=== PATIENT | male | born 1955 | race Caucasian/White ===

== ENCOUNTER 2019-10-05 19:40 | Emergency (ER) | payer BC ==
[~2019-10-05] VITALS: Ht 185.4 cm; Wt 178.7 kg
[2019-10-05] MEDS ORDERED: HYDROCODONE/APAP 10MG-325MG TAB ONE (19:59)
[2019-10-05] MEDS ORDERED: HYDROCODONE/APAP 10MG-325MG TAB PO ONE (20:00)
[2019-10-05] MEDS ORDERED: DEXAMETHASONE SOD PHOS 10 MG/1 ML VIAL IM ONE (20:00)
[2019-10-05] MEDS ORDERED: CLINDAMYCIN PHOS 900MG/ 50ML 50 ML IV SCH (20:30)
[2019-10-05] MEDS ORDERED: FLUORESCEIN SOD(OPTH) 1 MG STRP ONE (20:55)
[2019-10-05] MEDS ORDERED: TETRACAINE HCL 0.5% OPTH SOLN 4 ML BTL ONE (20:55)
[2019-10-05 21:13] LABS: BASOPHILS % 0.3 % (0.0-1.0); EOSINOPHILS # (AUTO) 0.1 (0.0-0.4); EOSINOPHILS % 0.9 % (0.0-6.0); HEMOGLOBIN 14.9 g/dL (14.0-18.0); LYMPHOCYTES # (AUTO) 1.4 (1.0-3.2); LYMPHOCYTES % 18.3 % (18.0-39.1); MEAN CORPUSCULAR HGB CONC 33.9 g/dL (31-35); MEAN CORPUSCULAR VOLUME 88.7 fL (81-99); MONOCYTES # (AUTO) 0.7 (0.2-0.8); MONOCYTES % 8.3 % (4.4-11.3); NEUTROPHILS # (AUTO) 5.7 (2.1-6.9); NEUTROPHILS % 71.9 % (38.7-80.0); PLATELET COUNT 245 x10e3/uL (140-360); RED BLOOD COUNT 4.96 x10e6/uL (4.3-5.7); RED CELL DISTRIBUTION WIDTH 13.4 % (11.7-14.4)
[2019-10-05] MEDS ORDERED: MORPHINE SULFATE INJ 4 MG/ML INJ 1ML IV STA (21:25)
[2019-10-05] MEDS ORDERED: ONDANSETRON HCL INJ 2MG/ML 2ML 2 MG/ML VIAL IV STA (21:25)
[2019-10-05 21:39] LABS: ALANINE AMINOTRANSFERASE 37 IU/L (0-55); ALBUMIN 4.4 g/dL (3.5-5.0); ALBUMIN/GLOBULIN RATIO 1.5 (0.8-2.0); ALKALINE PHOSPHATASE 48 IU/L (40-150); ANION GAP 15.6 mmol/L (8-16); BLOOD UREA NITROGEN 14 mg/dL (7-26); BUN/CREATININE RATIO 15 (6-25); CALCIUM 10.1 mg/dL (8.4-10.2); CARBON DIOXIDE 23 mmol/L (22-29); CHLORIDE 106 mmol/L (98-107); CREATININE, SERUM 0.95 mg/dL (0.72-1.25); EST GLOMERULAR FILTRATION RATE > 60 ML/MIN (60-); GLUCOSE 125 mg/dL (74-118); POTASSIUM 3.6 mmol/L (3.5-5.1); SODIUM 141 mmol/L (136-145)
[2019-10-05] MEDS ORDERED: TETRACAINE HCL 0.5% OPTH SOLN 4 ML BTL OP ONE (21:45)
[2019-10-05] MEDS ORDERED: FLUORESCEIN SOD(OPTH) 1 MG STRP OP ONE (21:45)
[2019-10-05] MEDS ORDERED: ACYCLOVIR SODIUM INJ 1,000 MG in SODIUM CHLORIDE 0.9% 250ML 250 ML IV SCH (22:00)
[2019-10-05] MEDS ORDERED: TRIFLURIDINE(OPTH) 1 % 7.5ML BOTTLE OP SCH (22:00)
[2019-10-05] MEDS ORDERED: ACYCLOVIR 200 MG CAP PO STA (22:26)
[2019-10-05] MEDS ORDERED: ACYCLOVIR 200 MG CAP ONE (23:00)
[2019-10-05 23:05] VITALS: BP 150/80
== END 2019-10-05 23:07 | disposition other institution (70) ==
LOC: ER 19:40
DX: B02.33 Zoster keratitis (principal); R51 Headache; I10 Essential (primary) hypertension; E78.5 Hyperlipidemia, unspecified; M06.9 Rheumatoid arthritis, unspecified
CPT/HCPCS: 36415; 80053; 85025; 87040; 99284; J0133; J1100; J2270; J2405; J7050

== ENCOUNTER 2021-05-04 17:42 | Emergency (ER) | payer BC ==
[~2021-05-04] VITALS: Ht 182.9 cm; Wt 136.1 kg
[2021-05-04 18:55] LABS: BASOPHILS % 0.3 % (0.0-1.0); EOSINOPHILS % 0.9 % (0.0-6.0); HEMOGLOBIN 14.9 g/dL (14.0-18.0); LYMPHOCYTES # (AUTO) 1.9 (1.0-3.2); LYMPHOCYTES % 57.3 % (18.0-39.1); MEAN CORPUSCULAR HGB CONC 33.9 g/dL (31-35); MEAN CORPUSCULAR VOLUME 91.7 fL (81-99); MONOCYTES # (AUTO) 0.4 (0.2-0.8); MONOCYTES % 10.6 % (4.4-11.3); NEUTROPHILS % 30.6 % (38.7-80.0); PLATELET COUNT 188 x10e3/uL (140-360); RED CELL DISTRIBUTION WIDTH 14.3 % (11.7-14.4)
[2021-05-04 19:08] LABS: ALANINE AMINOTRANSFERASE 87 IU/L (0-55); ALBUMIN 4.4 g/dL (3.5-5.0); ALBUMIN/GLOBULIN RATIO 1.4 (0.8-2.0); ALKALINE PHOSPHATASE 56 IU/L (40-150); ANION GAP 17.3 mmol/L (8-16); BLOOD UREA NITROGEN 15 mg/dL (7-26); BUN/CREATININE RATIO 14 (6-25); CALCIUM 9.4 mg/dL (8.4-10.2); CARBON DIOXIDE 22 mmol/L (22-29); CHLORIDE 108 mmol/L (98-107); CREATINE KINASE 659 IU/L (30-200); CREATININE, SERUM 1.04 mg/dL (0.72-1.25); EST GLOMERULAR FILTRATION RATE > 60 ML/MIN (60-); GLUCOSE 98 mg/dL (74-118); POTASSIUM 3.3 mmol/L (3.5-5.1); SODIUM 144 mmol/L (136-145)
[2021-05-04 21:11] VITALS: BP 150/77
== END 2021-05-04 21:27 | disposition home or self-care (01) ==
LOC: ER 21:14
DX: U07.1 COVID-19 (principal); R06.02 Shortness of breath; R05 Cough; R94.31 Abnormal electrocardiogram [ECG] [EKG]
CPT/HCPCS: 36415; 71045; 80053; 82550; 82553; 83880; 84484; 85025; 85379; 93005; 99284; U0002

== ENCOUNTER → 2025-01-03 | Outpatient (REF) | payer BC ==
[~2025-01-03] MED LIST: ACETAMINOPHEN325 M1 PO; ALPHA LIPOIC A200 MG; ASPIRIN EC81 MG PO; CEFAZOLIN SODIUM IV; CELEBREX200 MG PO; CLOPIDOGREL75 MG PO; DOCUSATE SODIU100 MG PO; FENOFIBRATE160 MG PO; FLOMAX0.4 MG PO; FOLIC ACID0.4 MG PO; HUMIRA(CF)40 MG/0.1; HYDROCHLOROTHIA25 MG PO; IOPAMIDOL 370 MG/ML 100 ML INFUS..BTL INJ ONE; LEVALBUTER0.63 MG/3 NEB; LIPITOR20 MG PO; LISINOPRIL40 MG PO; METHOTREXATE2.5 MG PO; MIRALAX17 GM PO; NIFEDIPINE ER30 M1 PO; NISOLDIPINE34 MG PO; ONDANSETRON ODT4 MG PO; PLAVIX75 MG PO; TRICOR145 MG PO; VENLAFAXINE HCL75 M2 PO
[2025-01-03 14:22] LABS: CREATININE, SERUM 1.17 mg/dL (0.72-1.25)
== END ==
LOC: CT 13:10
PROVIDERS: ATTEND Internal Medicine Critical Care Medicine
DX: R06.00 Dyspnea, unspecified (principal); Z95.1 Presence of aortocoronary bypass graft
CPT/HCPCS: 36415; 71260; 82565; 84520; Q9967